=== PATIENT | female | born 1975 | race American Indian/Alaskan Native ===

== ENCOUNTER 2018-02-27 09:39 | Day surgery (SDC) | payer OTHER ==
[2018-02-18 09:50] VITALS: BMI 35.2
[2018-02-27 10:30] VITALS: O2SAT 100
[2018-02-27 10:48] LABS: BASO % 0.5 % (0.0-2.0); EOS % 0.2 % (0.0-4.0); HEMOGLOBIN 13.4 g/dL (12.0-16.0); LYMPH # 1.7 K/uL (1.0-4.3); LYMPH % 46.4 % (20.0-40.0); MEAN CORPUSCULAR HEMOGLOBIN 28.5 pg (27.0-31.0); MEAN CORPUSCULAR HGB CONC 32.8 g/dL (33.0-37.0); MEAN PLATELET VOLUME 6.6 fl (7.2-11.7); MONO # 0.4 K/uL (0.0-0.8); MONO % 11.6 % (0.0-10.0); NEUT # 1.5 K/uL (1.8-7.0); NEUT % 41.3 % (50.0-75.0); NRBC % 0.1 % (0.0-0.0); RBC 4.71 Mil/uL (3.80-5.20); RED CELL DISTRIBUTION WIDTH 13.9 % (11.5-14.5); WHITE BLOOD COUNT 3.7 K/uL (4.8-10.8)
[2018-02-27] MEDS ORDERED: Propofol 10 mg/ml Inj (20 ML) ONE (14:28)
[2018-02-27] MEDS ORDERED: Succinylcholine 200 mg/10 ml Inj IV ONE (14:28)
[2018-02-27] MEDS ORDERED: Lidocaine 2% Jelly (5 ml) TOP ONE (14:28)
[2018-02-27] MEDS ORDERED: Lidocaine 1% 5ml Abboject IV ONE (14:28)
[2018-02-27] MEDS ORDERED: Etomidate 20 mg/10ml Inj IV ONE (14:29)
[2018-02-27] MEDS ORDERED: Bupivacaine HCl 0.5% PF (30 ml) Inj ONE (15:10)
[2018-02-27] MEDS ORDERED: Silver Nitrate Topical - Stick ONE (15:10)
[2018-02-27] MEDS ORDERED: Rocuronium 10 mg/ml (5 ml) ONE (15:23)
[2018-02-27] MEDS ORDERED: Midazolam 2 MG/2 ML VIAL ONE (15:24)
[2018-02-27] MEDS ORDERED: Lactated Ringer's 1,000 ML IV ONE ×3 (15:30→17:37)
[2018-02-27] MEDS ORDERED: Dexamethasone 4 mg/1 ml ONE (15:59)
[2018-02-27] MEDS ORDERED: Bupivacaine 0.5% Inj(30mL) IJ ONE (16:02)
[2018-02-27] MEDS ORDERED: Neostigmine 1:1000 (1 mg/ml) Inj ONE (16:14)
[2018-02-27] MEDS ORDERED: Silver Nitrate Topical - Stick TOP ONE (16:40)
[2018-02-27] MEDS ORDERED: Desflurane Inhalation Anesthetic Liq (240 ml) ONE (16:56)
[2018-02-27] MEDS ORDERED: HYDROmorphone 0.5 mg/0.5 ml ISec IVP PRN (17:08)
[2018-02-27] MEDS ORDERED: Lactated Ringer's 1,000 ML IV SCH ×2 (17:15→18:15)
[2018-02-27] MEDS ORDERED: Oxycodone/Acetaminophen 5/325 mg Tab PO PRN (18:02)
[2018-02-27 22:58] VITALS: RESP 20
[2018-02-27 22:59] VITALS: BP 120/70; PULSE 70; TEMP 99.6
--- NOTE | 2018-03-03 11:28 | OP ---
PROCEDURE DATE: 02/27/2018 SURGEON: Lucien Maciel MD CLOSED CIRCUIT SCREEN WATCHER: Luís Calzada MD ANESTHESIOLOGIST: Sheri Sagastume MD ANESTHETIC: General Endo PREOPERATIVE DIAGNOSES: 1. Incapacitating pelvic pain. 2. Incapacitating abdominal pain. 3. Abnormal uterine bleeding. 4. Rule out pelvic endometriosis. 5. Rule out interstitial cystitis POSTOPERATIVE DIAGNOSES: 1. Incapacitating pelvic pain. 2. Incapacitating abdominal pain. 3. Abnormal uterine bleeding. 4. Rule out pelvic endometriosis. 5. Rule out interstitial cystitis OPERATION PERFORMED: 1. Examination under anesthesia. 2. Video_assisted hysteroscopy. 3. Cystoscopy. 4. Bilateral ureteral catheterization and injection of IC-Green dye 5. Robotic da Elyse laparoscopy. 6. Left ureterolysis. 7. Multiple peritoneal biopsies and excision of endometriosis 8. Treatment of endometriosis COMPLICATIONS: None. SAMPLES: Multiple samples obtained from left pelvic sidewall left periureteral right and left cul de sac DRAINS: ESTIMATED BLOOD LOSS: Minimal. FINDINGS: Genitalia: normal, external genitalia, cervix normal without lesions or polyps. Hysteroscopy showed evidence of a normal cavity with no polyps or fibroids or adhesions. Cystoscopy was performed to rule out endometriosis of bladder mucosa and also interstitial cystitis, also injury. The bladder was normal with no evidence of stone, trigonitis or cystitis. Positive jet flow visualized in both ureters. Laparoscopy Liver was normal, gallbladder was normal. There was evidence endometriosis of the rectovaginal septum and left pelvic sidewall. Fallopian tubes appeared to be normal. There was also evidence of severe retroperitoneal fibrosis in this area. CONSENT: The patient had been thoroughly evaluated and counseled regarding pros and cons of the procedure, the reasonable alternative, and the possible complications. She understood and accepted the risks involved. Appropriate literature was provided to the patient. The patient was in understanding that given her history and presurgical exam, she knows that she was a high risk and average patient. She accepted all the risks involved and all the questions had been answered to her satisfaction. DESCRIPTION OF PROCEDURE: Initiation of the case: After adequate anesthesia was obtained, the patient was placed in the dorsal lithotomy position with extreme care of placement of the patient without hyperextension or hyperflexing the hips. At this point, the patient was prepped and draped, the surgeon was gowned and gloved. A time- out was taken according to the hospital procedure and the procedure was started. At this point, we performed the cystoscopy and bilateral ureteral catheterization. At this point we performed cystoscopy: A cystoscope was inserted into the bladder, under direct visualization and the bladder was visualized. The bladder was free of lesions, tumors. There was no evidence of interstitial cystitis, and there was only a mild amount of trigonitis. At this point, both ureters were identified and appeared to be in normal anatomical position. At this point, utilizing an open-ended 5-Finnish catheter, the left ureter was catheterized all the way to the distal ureter, and a 5 mL of IC-Green were injected into the distal ureter. Similarly, on the contralateral ureter, the ureter was catheterized all the way to the distal ureter, and a 5 mL of IC-Green were injected into the distal ureter. At this point, the stents were removed, and the hysteroscope was removed and a 16- Finnish Rogers was placed into the bladder. At this point, we proceeded with a hysteroscopy: A speculum was placed in the vagina, and the anterior lip of the cervix was grasped. The cervix was dilated and a hysteroscope was inserted into the cavity. The cavity appeared to be of normal size, no polyps , fibroids or intrauterine adhesions were noticed. At this point, we proceeded with placement of trocars and docking of the Da Elyse Xi robot The surgeons were re-gowned and re-gloved, and an open laparoscopy was performed by making an incision below the umbilicus, and the fascia was incised , and the peritoneum was entered in the blunt fashion. The cannula was inserted and the abdomen was insufflated, and under direct visualization 3 additional ports were inserted, left upper quadrant, left mid quadrant and right upper quadrant. At this point, the da Elyse Xi robot was brought into the field and docked, and the instruments were inserted under direct visualization. With extreme care not to injure the bowel or any other area. As per the dictation, the upper abdomen appeared to be normal with no evidence of any lesions. The pelvis had the findings described above, which included significant adhesions, fibrosis of the posterior cul-de-sac, endometriosis. At this point, we proceeded with the left ureterolysis. The ureter appeared to dilated and it was clearly identified utilizing fluorescent technology. An incision was made on the peritoneum at the top of the pelvic brim, and incision was then carried down all the way opening the peritoneum and all the way down from the pelvic brim all the way down to the ovarian fossa extending the incision below the ovary. It was a progressive dissection where the ureter was progressively lateralized and the peritoneum medialized, thus freeing the ureter all the way down to the crossing of the uterine vessels. After this was done and the ureter was freed and lateralized and a large area of peritoneum, which had been opened up was excised and sent to pathology. At this point, after ureter had been identified, we were able to elevate the ovary and dissect it from the pelvic side wall in the ovarian fossa At this point, we proceeded with the left ovariolysis. The ovary was gently dissected and elevated off the ovarian fossa and area of fibrosis of endometriosis were exposed. At this point, we proceeded with a treatment of endometriosis and excision of endometriosis. On the left hand side, a large area of peritoneum, where containing endometriosis was excised in the ovarian fossa with the upper margin of the excision at the utero_ovarian ligament all the way down to the uterosacral ligament. Large areas of fibrosis were identified in posterior cul-de-sac and the rectovaginal space was affected with endometriosis . The rectovaginal area was then dissected and the space was opened, and we were able to dissect the rectum away from the posterior aspect of the cervix. . At this point, it was checked for hemostasis and appeared to be excellent. All the endometriosis had been excised. There were inflammatory areas in the posterior aspect of the uterus, which were not endometriotic, but they were purely inflammatory and these were not excisable, as they were not endometriotic. Therefore, we proceeded with ablation of such area utilizing the J plasma. Once this was done , it was checked for hemostasis and appeared to be excellent. After this was done, it was checked for hemostasis and appeared to be excellent. The pelvis was irrigated. The da Elyse Xi robot was removed. The abdomen desufflated. The instruments were removed. The incisions were closed in layers with 0 PDS for the fascia and 4-0 Monocryl for the skin. The patient was awakened up and taken to recovery room in excellent condition. MD JIMMIE Bonilla
== END 2018-02-27 21:15 | disposition home or self-care (01) ==
LOC: H.OPSURG 09:39 → H.PEDS 19:02 → H.OPSURG 21:15
PROVIDERS: ATTEND Obstetrics & Gynecology Reproductive Endocrinology
DX: N80.3 Endometriosis of pelvic peritoneum (principal); N93.9 Abnormal uterine and vaginal bleeding, unspecified; R10.2 Pelvic and perineal pain; R10.9 Unspecified abdominal pain
CPT/HCPCS: 36415; 52005; 58563; 58662; 85025; 86850; 86900; 88305; C1729; J0131; J0330; J0690; J1100; J1885; J2001; J2250; J2405; J2704; J2710; J2765; J3010; J7030; J7120; S2900